=== PATIENT | male | born 1930 | race Caucasian/White ===

== ENCOUNTER 2018-07-22 21:29 | Emergency (ER) | payer MEDICARE ==
[~2018-07-22 21:29] MED LIST: ASPI-292 PO; ATOR10TA24 PO; ESOM40CA42 PO; MET50 PO; NAP500 PO; TAMS0.4C76 PO
--- NOTE | 2018-07-22 22:01 | ER Report ---
History and Physical Time Seen By MD: 22:01 Hx. of Stated Complaint: fever for 3 days that has gotten worse; pt also has some jaw and right sided chest pain HPI/ROS CHIEF COMPLAINT: fever HISTORY OF PRESENT ILLNESS: This is a 87 year old male. He has had fevers off and on for 3 days that have gotten worse. Has had some jaw pain and was seen in the office in [place] and started on Augmentin for dental/sinus problems. He also was started on Cipro for prostatitis this morning. He has some right sided chest pain today, reproducible with touch or deep breaths. Mild chronic cough, has not really seen increased mucous production. No problems with bowels. REVIEW OF SYSTEMS: Constitutional: As above. Eyes: No discharge. No vision changes. ENT: No sore throat. No congestion. Cardiovascular: No palpitations. Respiratory: As above. Gastrointestinal: No abdominal pain. No nausea or vomiting. Genitourinary: No dysuria. No frequency Musculoskeletal: No other musculoskeletal pain. Skin: No rashes. Neurological: No numbness. No headache. Allergies: Coded Allergies: No Known Drug Allergies (Verified , 12/29/07) Home Meds Reported Medications Atorvastatin (Lipitor) 10 Mg Tablet, 10 MG PO 12/29/07 Naproxen (Naprosyn) 500 Mg Tab, 500 MG PO BID 12/29/07 Aspirin (Analgesic) 325 Mg Tablet, 325 MG PO 12/29/07 Tamsulosin Hcl (Flomax) 0.4 Mg Cap.sr.24h, 0.4 MG PO 12/29/07 Esomeprazole Mag Trihydrate (Nexium) 40 Mg Capsule.dr, 40 MG PO QDAY 12/29/07 Metoprolol Tartrate (Lopressor (Or Equiv)) 50 Mg Tab, 25 MG PO BID 12/29/07 Reviewed Nurses Notes: Yes Constitutional Vital Sign - Last 24 Hours 07/22/18 07/22/18 07/22/18 07/22/18 21:29 21:30 21:35 21:39 Temp 98.1 Pulse ??? 50 83 Resp 21 20 Pulse Ox 84 85 85 O2 Delivery Room Air 07/22/18 07/22/18 07/22/18 07/22/18 21:40 21:44 21:50 21:59 Pulse 79 Resp 20 25 B/P (MAP) 210/104 (139) 198/100 (132) Pulse Ox 84 98 07/22/18 07/22/18 07/22/18 07/22/18 22:00 22:29 22:59 23:00 Pulse 79 78 Resp 10 13 25 B/P (MAP) 196/100 (132) 212/101 (138) 203/99 (133) Pulse Ox 96 94 07/22/18 07/22/18 07/22/18 07/22/18 23:20 23:20 23:20 23:30 Temp 98.9 Pulse 78 Resp 14 B/P (MAP) 196/89 (124) 196/89 (124) Pulse Ox 95 07/22/18 07/22/18 07/22/18 07/23/18 23:35 23:40 23:45 00:20 Pulse 81 79 Resp 10 10 B/P (MAP) 191/90 (123) ???/??? (1665) Pulse Ox 95 95 07/23/18 07/23/18 07/23/18 07/23/18 00:37 00:40 00:45 01:00 Pulse 76 Resp 25 B/P (MAP) 188/87 (120) 188/90 (122) 126/84 (98) Pulse Ox 94 07/23/18 07/23/18 07/23/18 07/23/18 01:15 01:20 01:25 01:32 Pulse 70 75 73 Resp 19 22 29 B/P (MAP) 170/80 (110) Pulse Ox 92 95 94 07/23/18 07/23/18 07/23/18 07/23/18 01:37 01:40 02:00 02:07 Pulse 73 69 Resp 25 22 B/P (MAP) 184/87 (119) 175/93 (120) Pulse Ox 92 95 07/23/18 07/23/18 02:12 02:20 Pulse 70 Resp 18 B/P (MAP) 175/96 (122) Pulse Ox 96 Physical Exam General Appearance: The patient is alert. No acute distress. Eyes: Pupils are equal, round. No pallor, injection or icterus. ENT: Mucous membranes are moist. Normal oral mucosa. Posterior oropharynx is normal. Normal tympanic membranes and canals. Neck: Supple and non tender. No lymphadenopathy. Respiratory: Lungs are clear to auscultation. There are no retractions or accessory muscle use. Cardiovascular: Regular rate and rhythm. No murmurs, gallops or rubs. Normal capillary refill. No edema. Gastrointestinal: Abdomen is soft and non tender. Nondistended. Normal active b owel sounds. No costovertebral angle tenderness with percussion. Neurological: Alert and oriented x3. No focal neurologic deficits Skin: Warm and dry. No rashes. Musculoskeletal: Extremities are nontender. No tenderness in palpation of the cervical, thoracic and lumbar spine. DIFFERENTIAL DIAGNOSIS: After history and physical exam, differential diagnosis was considered for a patient with fevers at home, but recently started on Augmentin and Cipro, now with some chest pain concerning for pneumonia. No fevers noted on vitals. He is hypertensive, but just took his evening medicine. Will hold off on any blood pressure medicine because of concern for infectious process. Medical Decision Making Data Points Result Diagram: 07/22/18214507/22/182145 Laboratory Hematology Test 07/22/18 21:46 07/22/18 22:32 07/23/18 01:30 Red Blood Count 4.89 M/uL (4.00-5.60) Mean Corpuscular Volume 97.3 fL (80.0-96.0) Mean Corpuscular Hemoglobin 33.5 pg (26.0-33.0) Mean Corpuscular Hemoglobin Concent 34.5 g/dL (32.0-36.0) Red Cell Distribution Width 14.7 % (11.5-14.5) Mean Platelet Volume 7.7 fL (7.2-11.1) Neutrophils (%) (Auto) 65.8 % (39.4-72.5) Lymphocytes (%) (Auto) 23.3 % (17.6-49.6) Monocytes (%) (Auto) 9.3 % (4.1-12.4) Eosinophils (%) (Auto) 0.8 % (0.4-6.7) Basophils (%) (Auto) 0.8 % (0.3-1.4) Nucleated RBC Relative Count (auto) 0.0 /100WBC Neutrophils # (Auto) 3.0 K/uL (2.0-7.4) Lymphocytes # (Auto) 1.1 K/uL (1.3-3.6) Monocytes # (Auto) 0.4 K/uL (0.3-1.0) Eosinophils # (Auto) 0.0 K/uL (0.0-0.5) Basophils # (Auto) 0.0 K/uL (0.0-0.1) Nucleated RBC Absolute Count (auto) 0.00 K/uL Urine Color Yellow Urine Clarity Clear Urine pH 5.0 pH (4.8-9.5) Urine Specific [place] 1.015 Urine Protein 30 mg/dL (NEGATIVE) Urine Glucose (UA) Negative mg/dL (NEGATIVE) Urine Ketones Negative mg/dL (NEGATIVE) Urine Blood Negative (NEGATIVE) Urine Nitrite Negative (NEGATIVE) Urine Bilirubin Negative (NEGATIVE) Urine Urobilinogen 4.0 mg/dL (0.2-1.9) Urine Leukocyte Esterase Negative (NEGATIVE) Urine RBC 2 /HPF (0-2/HPF) Urine WBC <1 /HPF (0-5/HPF) Urine Squamous Epithelial Cells None /LPF (</=FEW) Urine Transitional Epithelial Cells Few /LPF (NONE-FEW) Urine Bacteria Negative /HPF (NONE-FEW) Urine Hyaline Casts Few /LPF (NONE-FEW) Urine Mucus None /HPF (NONE-FEW) Sodium Level 136 mmol/L (137-145) Potassium Level 4.1 mmol/L (3.5-5.0) Chloride Level 97 mmol/L (98-107) Carbon Dioxide Level 27 mmol/L (22-30) Blood Urea Nitrogen 23 mg/dl (9-21) Creatinine 1.20 mg/dl (0.66-1.25) Glomerular Filtration Rate Calc 57.0 Random Glucose 115 mg/dl (75-110) Calcium Level 9.4 mg/dl (8.4-10.2) Total Bilirubin 0.7 mg/dl (0.2-1.3) Aspartate Amino Transf (AST/SGOT) 18 U/L (0-35) Alanine Aminotransferase (ALT/SGPT) 25 U/L (0-56) Alkaline Phosphatase 107 U/L (0-126) Total Protein 7.2 g/dl (6.3-8.2) Albumin 4.1 g/dl (3.5-5.0) Influenza Virus Type A (PCR) Negative (NEGATIVE) Influenza Virus Type B (PCR) Negative (NEGATIVE) Troponin I 0.028 ng/ml Chemistry Test 07/22/18 21:46 07/22/18 22:32 07/23/18 01:30 White Blood Count 4.5 k/uL (4.5-11.0) Red Blood Count 4.89 M/uL (4.00-5.60) Hemoglobin 16.4 g/dL (14.0-18.0) Hematocrit 47.6 % (42.0-52.0) Mean Corpuscular Volume 97.3 fL (80.0-96.0) Mean Corpuscular Hemoglobin 33.5 pg (26.0-33.0) Mean Corpuscular Hemoglobin Concent 34.5 g/dL (32.0-36.0) Red Cell Distribution Width 14.7 % (11.5-14.5) Platelet Count 114 K/uL (150-450) Mean Platelet Volume 7.7 fL (7.2-11.1) Neutrophils (%) (Auto) 65.8 % (39.4-72.5) Lymphocytes (%) (Auto) 23.3 % (17.6-49.6) Monocytes (%) (Auto) 9.3 % (4.1-12.4) Eosinophils (%) (Auto) 0.8 % (0.4-6.7) Basophils (%) (Auto) 0.8 % (0.3-1.4) Nucleated RBC Relative Count (auto) 0.0 /100WBC Neutrophils # (Auto) 3.0 K/uL (2.0-7.4) Lymphocytes # (Auto) 1.1 K/uL (1.3-3.6) Monocytes # (Auto) 0.4 K/uL (0.3-1.0) Eosinophils # (Auto) 0.0 K/uL (0.0-0.5) Basophils # (Auto) 0.0 K/uL (0.0-0.1) Nucleated RBC Absolute Count (auto) 0.00 K/uL Urine Color Yellow Urine Clarity Clear Urine pH 5.0 pH (4.8-9.5) Urine Specific [place] 1.015 Urine Protein 30 mg/dL (NEGATIVE) Urine Glucose (UA) Negative mg/dL (NEGATIVE) Urine Ketones Negative mg/dL (NEGATIVE) Urine Blood Negative (NEGATIVE) Urine Nitrite Negative (NEGATIVE) Urine Bilirubin Negative (NEGATIVE) Urine Urobilinogen 4.0 mg/dL (0.2-1.9) Urine Leukocyte Esterase Negative (NEGATIVE) Urine RBC 2 /HPF (0-2/HPF) Urine WBC <1 /HPF (0-5/HPF) Urine Squamous Epithelial Cells None /LPF (</=FEW) Urine Transitional Epithelial Cells Few /LPF (NONE-FEW) Urine Bacteria Negative /HPF (NONE-FEW) Urine Hyaline Casts Few /LPF (NONE-FEW) Urine Mucus None /HPF (NONE-FEW) Glomerular Filtration Rate Calc 57.0 Calcium Level 9.4 mg/dl (8.4-10.2) Total Bilirubin 0.7 mg/dl (0.2-1.3) Aspartate Amino Transf (AST/SGOT) 18 U/L (0-35) Alanine Aminotransferase (ALT/SGPT) 25 U/L (0-56) Alkaline Phosphatase 107 U/L (0-126) Total Protein 7.2 g/dl (6.3-8.2) Albumin 4.1 g/dl (3.5-5.0) Influenza Virus Type A (PCR) Negative (NEGATIVE) Influenza Virus Type B (PCR) Negative (NEGATIVE) Troponin I 0.028 ng/ml Urinalysis Test 07/22/18 21:46 Urine Color Yellow Urine Clarity Clear Urine pH 5.0 pH (4.8-9.5) Urine Specific [place] 1.015 Urine Protein 30 mg/dL (NEGATIVE) Urine Glucose (UA) Negative mg/dL (NEGATIVE) Urine Ketones Negative mg/dL (NEGATIVE) Urine Blood Negative (NEGATIVE) Urine Nitrite Negative (NEGATIVE) Urine Bilirubin Negative (NEGATIVE) Urine Urobilinogen 4.0 mg/dL (0.2-1.9) Urine Leukocyte Esterase Negative (NEGATIVE) Urine RBC 2 /HPF (0-2/HPF) Urine WBC <1 /HPF (0-5/HPF) Urine Squamous Epithelial Cells None /LPF (</=FEW) Urine Transitional Epithelial Cells Few /LPF (NONE-FEW) Urine Bacteria Negative /HPF (NONE-FEW) Urine Hyaline Casts Few /LPF (NONE-FEW) Urine Mucus None /HPF (NONE-FEW) EKG/Imaging EKG Interpretation 12 lead EKG: Rhythm: Sinus rhythm, rate 76 [place]: Left axis QRS: Left bundle ST segments: normal No change with comparison Imaging CHEST PA AND LAT COMPARISONS: None. ADDITIONAL PERTINENT HISTORY: Fever FINDINGS: Cardiomediastinal silhouette: Negative. Pulmonary vasculature: Atherosclerotic disease of the thoracic aortic arch. Lung saenz: Hyperexpanded lung saenz with background interstitial scarring. Otherwise negative Pleural spaces: Negative. Osseous structures: Negative. Surrounding soft tissues: Negative. IMPRESSION: 1. Hyperexpanded lung saenz with background interstitial scarring. 2. No acute cardiopulmonary disease. Report Dictated By: Pepe Joshi MD at 07/22/2018 10:[address] PE DATE: 07/23/2018 1:04 AM INDICATION: Chest pain, hypoxia. COMPARISON: Same-day radiographs. TECHNIQUE: Axial CT angiogram was obtained through the chest with intravenous contrast. Sagittal and coronal MPR and MIP coronal reformations were also generated. 75 mL isovue 370. One of the following dose optimization techniques was utilized in the performance of this exam: Automated exposure control; adjustment of the mA and/or kV according to the patient's size; or use of an iterative reconstruction technique. Specific details can be referenced in the facility's radiology CT exam operational policy. FINDINGS: Thyroid / Thoracic Inlet: No visualized thyroid nodule or supraclavicular lymphadenopathy. Pulmonary Arteries: No pulmonary embolism. Heart and Aorta: Normal-size heart with no pericardial effusion. Nonaneurysmal thoracic aorta with mild atherosclerosis. Mediastinum and [place]: Mildly prominent hilar lymph nodes are likely reactive. Lungs and Pleura: No pleural effusion or pneumothorax. There is debris in the right mainstem bronchus as well as bronchi in the left lower lobe. Mild atelectasis. No suspicious focal consolidation. Mild prominence of the interlobular septa in the lung apices. Breast and Axilla: No axillary lymphadenopathy. Upper Abdomen: No visualized acute abnormality. Cholecystectomy. Bones and Soft Tissues: No suspicious osseous or soft tissue abnormality. Bilateral cervical ribs fused to the 1st thoracic ribs. IMPRESSION: 1. No pulmonary embolism. 2. Question mild pulmonary edema. 3. Degree in the right mainstem bronchus and bronchi in the left lower lobe could represent mucous, infectious material or aspirated material. Report Dictated By: Patrice Babb MD at 07/23/2018 1:04 AM ED Course/Re-evaluation Clinical Indication for ER IV: IV Access ED Course After the initial evaluation, the patient had labs and imaging done with a concern for infectious process given report of fever. He was started on Augmentin earlier today for dental and sinus problems. He is on Cipro for prostatitis. His x-ray was negative and labs unremarkable. He denies cough, but does have some increased pain in the left side of his chest. Blood pressure initially noted to be high, but given concern for an infectious process we held off on given anything for this. He reported that he had taken his propranolol j ust prior to coming to [place] today. Initial troponin was negative. CTA obtained, and shows some mucous in the lower bronchi on the left consistent with his COPD and correlating with the pain. He has no sign of blood clots or infiltrates. Repeat troponin was negative as well at 4 hours. He remains mildly hypoxic. He will continue the Augmentin and Cipro for now. We will put him on oxygen. Nothing to admit for tonight, but recommended close follow-up or return to the ER with worsening symptoms as needed. Decision to Disposition Date: Jul 23, 2018 Decision to Disposition Time: 02:12 Depart Departure Latest Vital Signs Vital Signs Date Time Temp Pulse Resp B/P (MAP) Pulse Ox O2 Delivery O2 Flow Rate FiO2 07/23/18 02:20 175/96 (122) 07/23/18 02:12 70 18 96 07/22/18 23:20 98.9 07/22/18 21:39 Room Air Impression: Primary Impression: COPD (chronic obstructive pulmonary disease) Additional Impressions: CAD (coronary artery disease) Bronchitis, acute Prostatitis Hypertension Dental infection Condition: Improved Disposition: HOME OR SELF-CARE Referrals: CECILIA CISSE MD (PCP) Departure Forms: Home Oxygen, Nebulizer RX Durable Medical Equipment- Oxygen: Oxygen Concentrator, Portable Oxygen Gas Reason for Use/Diagnosis: COPD, hypoxia, acute bronchitis Start Date of the Order: Jul 23, 2018 Dosage or Concentration (if applicable) - LPM: 2 Route of Administration (if applicable): Nasal Cannula Frequency of Use: Continuous Duration Home O2 Required: 6 Duration Units: Weeks Room Air Oxygen Saturation: 84 ER Prescribing Physician's Name: Marek William NPI Numbers for Local ER MDs: Nataliia [id number] Patient Instructions: Acute Bronchitis (ED) Additional Instructions: Your chest pain today is likely due to inflammation from some bronchitis. The chest x-ray and CT scan did nor reveal any further problems such as pneumonia or blood clots. Cardiac testing tonight was negative for heart attack. Your blood pressure was very high, but did improve. Your oxygen levels were low and likely due to the bronchitis. We will start you on some oxygen and have you follow-up with the providers in [place]. Keep taking your Cipro for the prostatitis. Keep taking the Augmentin for the sinus and dental problems. Problem Qualifiers Primary Impression: COPD (chronic obstructive pulmonary disease) COPD type: chronic bronchitis Chronic bronchitis type: unspecified Qualified Codes: J42 - Unspecified chronic bronchitis Additional Impressions: CAD (coronary artery disease) Coronary Disease-Associated Artery/Lesion type: unspecified vessel or lesion type [place] vs. transplanted heart: [place] heart Associated angina: without angina Qualified Codes: I25.10 - Atherosclerotic heart disease of [place] coronary artery without angina pectoris Bronchitis, acute Bronchitis organism: unspecified organism Qualified Codes: J20.9 - Acute bronchitis, unspecified Prostatitis Prostatitis type: acute Qualified Codes: N41.0 - Acute prostatitis Hypertension Hypertension type: essential hypertension Qualified Codes: I10 - Essential (primary) hypertension MAREK WILLIAM MD Jul 22, 2018 22:01
[2018-07-22 22:18] LABS: PLATELET COUNT, AUTOMATED 114 K/uL (150-450)
--- NOTE | 2018-07-22 22:42 | RADIOLOGY IMAGING REPORT ---
FACILITY: [facility] - [place] PATIENT NAME: Zia Kaur : 1930 MR: [id number] V: [id number] EXAM DATE: ORDERING PHYSICIAN: MAREK VALLADARES TECHNOLOGIST: Location: [facility] [place] Patient: Zia Kaur : 1930 Visit/Account:[id number] Date of Sevice: 07/22/2018 CHEST PA AND LAT COMPARISONS: None. ADDITIONAL PERTINENT HISTORY: Fever FINDINGS: Cardiomediastinal silhouette: Negative. Pulmonary vasculature: Atherosclerotic disease of the thoracic aortic arch. Lung saenz: Hyperexpanded lung saenz with background interstitial scarring. Otherwise negative Pleural spaces: Negative. Osseous structures: Negative. Surrounding soft tissues: Negative. IMPRESSION: 1. Hyperexpanded lung saenz with background interstitial scarring. 2. No acute cardiopulmonary disease. Report Dictated By: Pepe Joshi MD at 07/22/2018 10:37 PM Report E-Signed By: Pepe Joshi MD at 07/22/2018 10:38 PM WSN:[id number]
[2018-07-22] MEDS ORDERED: NS(*) 0.9% 1000 ML BAG 1,000 ML IV ONE (22:50)
[2018-07-22] MEDS ORDERED: LABETALOL HCL 100 MG/20ML VIAL IVP ONE (23:35)
[2018-07-22] MEDS ORDERED: NS(*) 0.9% 50 ML BAG 50 ML ONE (23:59)
--- NOTE | 2018-07-23 00:34 | EKG ---
FACILITY: [facility] - [place] PATIENT NAME: KALEY FERRARO : [id number] MR: [id number] V: [id number] EXAM DATE: ORDERING PHYSICIAN: MAREK VALLADARES TECHNOLOGIST: SHAYLA Way Reason : CHEST TIGHTNESS Blood Pressure : / mmHG Vent. Rate : 076 BPM Atrial Rate : 076 BPM P-R Int : 180 ms QRS Dur : 132 ms QT Int : 428 ms P-R-T Axes : 043 -43 080 degrees QTc Int : 481 ms Sinus rhythm Left axis deviation Left bundle branch block Abnormal ECG No previous ECGs available Confirmed by CONNER MARTINI ([id number]) on 07/23/2018 4:45:31 AM Referred By: Confirmed By:CONNER MARTINI
--- NOTE | 2018-07-23 01:17 | RADIOLOGY IMAGING REPORT ---
FACILITY: [facility] - [place] PATIENT NAME: Zia Kaur : 1930 MR: [id number] V: [id number] EXAM DATE: [id number] ORDERING PHYSICIAN: MAREK VALLADARES TECHNOLOGIST: Location: [facility] - [place], [place] Patient: Zia Kaur : 1930 Visit/Account:[id number] Date of Sevice: 07/22/2018 ADDENDUM #1 There is a human services supervisor error in the 3rd line of the impression. It should read: Debris in the righ t mainstem bronchus and bronchi in the left lower lobe could represent mucous, infectious material or aspirated material. Report Dictated By: Patrice Babb MD at 07/23/2018 4:07 AM Report E-Signed By: Patrice Babb MD at 07/23/2018 4:[address] PE DATE: 07/23/2018 1:04 AM INDICATION: Chest pain, hypoxia. COMPARISON: Same-day radiographs. TECHNIQUE: Axial CT angiogram was obtained through the chest with intravenous contrast. Sagittal an d coronal MPR and MIP coronal reformations were also generated. 75 mL isovue 370. One of the follow ing dose optimization techniques was utilized in the performance of this exam: Automated exposure con trol; adjustment of the mA and/or kV according to the patient's size; or use of an iterative reconst ruction technique. Specific details can be referenced in the facility's radiology CT exam operationa l policy. FINDINGS: Thyroid / Thoracic Inlet: No visualized thyroid nodule or supraclavicular lymphadenopathy. Pulmonary Arteries: No pulmonary embolism. Heart and Aorta: Normal-size heart with no pericardial effusion. Nonaneurysmal thoracic aorta with mild atherosclerosis. Mediastinum and [place]: Mildly prominent hilar lymph nodes are likely reactive. Lungs and Pleura: No pleural effusion or pneumothorax. There is debris in the right mainstem bronch us as well as bronchi in the left lower lobe. Mild atelectasis. No suspicious focal consolidation. Mild prominence of the interlobular septa in the lung apices. Breast and Axilla: No axillary lymphadenopathy. Upper Abdomen: No visualized acute abnormality. Cholecystectomy. Bones and Soft Tissues: No suspicious osseous or soft tissue abnormality. Bilateral cervical ribs f used to the 1st thoracic ribs. IMPRESSION: 1. No pulmonary embolism. 2. Question mild pulmonary edema. 3. Degree in the right mainstem bronchus and bronchi in the left lower lobe could represent mucous, infectious material or aspirated material. Report Dictated By: Patrice Babb MD at 07/23/2018 1:04 AM Report E-Signed By: Patrice Babb MD at 07/23/2018 1:12 AM WSN:[id number]
[2018-07-23] MEDS ORDERED: PANTOPRAZOLE SOD 40 MG TABEC PO ONE (02:05)
[2018-07-23] MEDS ORDERED: AMOX/CLAV 875 MG TAB PO ONE (02:05)
[2018-07-23] MEDS ORDERED: TAMSULOSIN HCL 0.4 MG CAP PO ONE (02:05)
[2018-07-23] MEDS ORDERED: traMADol 50 MG TAB TH 2 TAB/BOTTLE PO ONE (02:05)
[2018-07-23] MEDS ORDERED: CIPROFLOXACIN 500 MG TAB PO ONE (02:05)
[2018-07-23] MEDS ORDERED: CITALOPRAM HYDROBROM 20 MG TAB PO SCH (02:05)
[2018-07-23] MEDS ORDERED: ACETAMINOPHEN 500 MG TAB PO ONE (02:05)
[2018-07-23] MEDS ORDERED: METOPROLOL TART 50 MG TAB PO ONE (02:05)
[2018-07-23] MEDS ORDERED: ATORVASTATIN 10 MG TAB PO ONE (02:05)
[2018-07-23] MEDS ORDERED: PROPRANOLOL HCL 20 MG TAB PO ONE (02:05)
[2018-07-23] MEDS ORDERED: ASPIRIN 81 MG CHEW PO ONE (02:05)
[2018-07-23 02:20] VITALS: BP 175/96
== END 2018-07-23 03:01 | disposition home or self-care (01) ==
LOC: ER 22:10
DX: J44.9 Chronic obstructive pulmonary disease, unspecified (principal); I25.10 Atherosclerotic heart disease of native coronary artery without angina pectoris; J42 Unspecified chronic bronchitis; I10 Essential (primary) hypertension; K04.7 Periapical abscess without sinus; N41.0 Acute prostatitis
CPT/HCPCS: 36415; 71046; 71275; 81001; 84484; 85025; 87502; 93005; 99284; A9270; J7030; J7050; Q9967; 82040; 82247; 82310; 82374; 82435; 82565; 82947; 84075; 84132; 84155; 84295; 84450; 84460; 84520; C9399